=== PATIENT | male | born 1940 | race Caucasian/White ===

== ENCOUNTER 2017-01-06 22:38 | Inpatient (IN) | payer MEDICARE, OTHER ==
[~2017-01-06] VITALS: Ht 170.2 cm; Wt 116.2 kg
--- NOTE | ~2017-01-06 | DS ---
PATIENT'S NAME: ROSITA COFFMAN [facility] AGE: 76 Y [address] ROOM: [id number] [place] [id number] LOCATION: GPCU ADMIT DATE: 01/07/2017 Discharge Summary DISCHARGE DATE: 01/08/2017 FAMILY PHYSICIAN: PHYSICIAN, MARLEEN ATTENDING PHYSICIAN: Cosme Coughlin PRINCIPAL DIAGNOSES: 1. Severe sepsis secondary to bilateral lower extremity cellulitis. 2. Chronic venous insufficiency of lower extremities bilaterally. 3. Type 2 diabetes, new onset. BRIEF HOSPITAL COURSE: Please refer to the admission H and P for detailed history on initial presentation. This is a 76-year-old male with history of chronic venous insufficiency of the lower extremities, presents with progressively worsening erythema, redness, and pain of the lower extremities and on presentation was noted to have cellulitis and admitted for management of this setting of a sepsis picture. The patient was started on broad- spectrum antibiotics with Zyvox and Zosyn and cultures were drawn and at the time of discharge, cultures were negative. The patient, during my evaluation today, had shown significant improvement, redness, and erythema of the lower extremities, overall much improved. The patient had undergone Doppler studies of his lower extremities, which were negative for acute DVT as well. At this, we will discharge the patient to finish a total of at least 70s of antibiotic course with clindamycin. We will also send him on metformin 500 b.i.d. and we will have him follow up with primary care physician in 1 week. This is newly diagnosed diabetes. A1c today was 6.6. The patient will also follow up with a virtualization consultant as soon as possible to follow up on his issues with venous insufficiency and keep a close eye on the worsening calluses that he has that could potentially worsen, especially now that he is also a diabetic. PHYSICAL EXAMINATION: GENERAL: Appears awake, alert, and oriented x3, no acute distress. CHEST: Clear to auscultation bilaterally. HEART: S1, S2. Regular rate and rhythm. CHEST: Clear to auscultation bilaterally. EXTREMITIES: Lower extremities are without erythema, redness, or swelling. DISPOSITION: Home. FOLLOWUP: Follow up with Podiatry and PCP within 1 week. Less than 30 minutes were spent in discharge planning and facilitating. PATIENT'S NAME: ROSITA COFFMAN [facility] AGE: 76 Y [address] ROOM: [id number] [place] [address] LOCATION: GPCU ADMIT DATE: 01/07/2017 Discharge Summary DISCHARGE DATE: 01/08/2017 FAMILY PHYSICIAN: MARLEEN VILLATORO ATTENDING PHYSICIAN: Cosme Coughlin MD ALEXIS LEWIS/live /[id number] d: 01/09/17 0107 t: 01/14/17 1556, DISCHARGE SUMMARY
--- NOTE | ~2017-01-06 | HP ---
PATIENT'S NAME: ROSITA COFFMAN [facility] AGE: 76 Y [address] ROOM: [place] [address] LOCATION: [facility] ADMIT DATE: 01/07/2017 History & Physical DISCHARGE DATE: FAMILY PHYSICIAN: PHYSICIAN, UNKNOWN ATTENDING PHYSICIAN: KINZA ODONNELL DATE OF SERVICE: CHIEF COMPLAINT: Right big toe pain and feeling chills. HISTORY OF PRESENT ILLNESS: This is a 76-year-old male who says that around 7:30 p.m. last night the patient started feeling chills and the also found him to be a little bit confused. The describes the patient was slow in response, but there was no facial droop, no slurred speech, and no syncope. The patient says that his right big toe has an unhealing ulcer about the last 6 months and recently has been having some drainage that he described as a serosanguineous type. When he touched the right foot, he has pretty advanced peripheral neuropathy from diabetes, he always feel numb in his legs, but when he touches the right big toe ulcer, there is pain. The pain is not too bad, but because of the peripheral neuropathy. Because of this slight confusion and also this chills and the right big toe nonhealing ulcer, the patient came in here for evaluation. REVIEW OF SYSTEMS: As mentioned in the history of present illness. All other systems were reviewed and were negative except as mentioned in the history of present illness. PAST MEDICAL HISTORY: 1. Diabetes type 2. 2. Peripheral neuropathy from diabetes. 3. Hypothyroidism. 4. Fibromyalgia. ALLERGIES: NONE. HOME MEDICATIONS: Currently is being reconciled. SOCIAL HISTORY: The patient was a former cigarette smoker of very little amount and he quit in year 1961. He smoked only for a very short amount of time that he described PATIENT'S NAME: ROSITA COFFMAN [facility] AGE: 76 Y [address] ROOM: [address] [address] LOCATION: [facility] ADMIT DATE: 01/07/2017 History & Physical DISCHARGE DATE: FAMILY PHYSICIAN: PHYSICIAN, UNKNOWN ATTENDING PHYSICIAN: KINZA ODONNELL as 1 or 2 years. The patient was a former social alcohol drinker of very little amount. He denies any alcohol withdrawal or alcohol intoxication in the past. He quit drinking many years ago already. He denies any intravenous drug use. PAST SURGICAL HISTORY: 1. Bilateral shoulder surgery. 2. Knee surgery. FAMILY HISTORY: Both parents had diabetes type 2. PHYSICAL EXAMINATION: VITAL SIGNS: Temperature 98.5, blood pressure 134/87, respirations 16, saturation 97% on room air, and heart rate 90. GENERAL APPEARANCE: Alert and oriented x3. Currently, in no acute distress. HEENT: Pupils equally round and reactive to light. Extraocular muscles intact. Anicteric sclerae. Nasal turbinates are normal bilaterally. Moist oral mucosa. NECK: No JVD. CARDIOVASCULAR: Regular rate and rhythm. Normal S1 and S2. No murmur. No rubs. No gallops. RESPIRATORY: Clear to auscultation. No rales. No rhonchi. No wheezing. No crackles. ABDOMEN: Obese, soft, nontender, nondistended, bowel sounds present, and no mass. EXTREMITIES: He has pitting edema in bilateral lower extremities. He also has skin changes with stasis dermatitis in bilateral lower extremities. On the right big toe, there is an ulcer. Currently, it is dry. I do not see any secretion coming out and there is tenderness to palpation in that ulcer as well. The ulcer is about stage II based on my examination. Dorsalis pedis pulse and posterior tibialis pulse palpable bilaterally with fingers, on Doppler is audible on bilateral lower extremities. SKIN: As mentioned before, stasis dermatitis in bilateral lower extremities and also stage II ulcer on the right big toe. NEUROLOGICAL: Grossly nonfocal except for decreased sensation in bilateral lower extremities all the way from bilateral knees to the distal toes in both legs. LABORATORY DATA: ABG show pH of 7.45, pCO2 of 37, PO2 of 71, bicarbonate 25.7. Lactic acid 2.3. CPK 36. Troponin less than 0.04. ProBNP 119. White blood cell 15.7, hemoglobin 15.7, hematocrit 46, platelet 233. Glucose 124. BUN 28, creatinine 1.5. Sodium 140, potassium 4.0, chloride 108, CO2 of 23, calcium 9.0, total protein 7.2, albumin 3.7, AST 24, ALT 24, alkaline phosphatase 79, PATIENT'S NAME: ROSITA COFFMAN [facility] AGE: 76 Y [address] ROOM: [id number] [place] [id number] LOCATION: [facility] ADMIT DATE: 01/07/2017 History & Physical DISCHARGE DATE: FAMILY PHYSICIAN: PHYSICIAN, UNKNOWN ATTENDING PHYSICIAN: KINZA ODONNELL total bilirubin 0.5, anion gap 13, globulin 3.5. Urinalysis show negative UTI. GFR 44. CK-MB 0.7. Free T4 of 1.1, TSH 3.32. Procalcitonin 0.73. Absolute neutrophil count 14.1. IMAGING STUDIES: EKG on admission on January 06, 2017 at 10:48 p.m. shows sinus tachycardia with PVC. Also, has left axis deviation. Heart rate of 115. QTc 374 milliseconds. QRS 80 milliseconds. PA 185 milliseconds. No acute ischemic changes. Chest x-ray: Currently, has been taken. CT of the head without contrast. Based on the preliminary review on admission, it was read as no acute intracranial process. ASSESSMENT AND PLAN: 1. Regarding his severe sepsis secondary to right first toe cellulitis and concerning for underlying osteomyelitis: IV fluids for hydration and also I have covered him with IV linezolid and IV Zosyn. The patient is in severe sepsis having tachycardia and having low-grade temperature and leukocytosis and in pain. Given that it is middle of the night due to the severe sepsis, I am going to start antibiotics without waiting for the MRI. Ideally, we should wait for the bone biopsy if there is osteomyelitis, but given that patient is in severe sepsis I am not going to delay the treatment. In addition, osteomyelitis has not been confirmed. Therefore, we will get an ESR CRP now and also check an MRI of the right foot in the morning to confirm bone involvement. We will get 2 sets of blood culture. Further plan will depend on clinical course. Pain control with IV morphine p.r.n. 2. Regarding his acute kidney injury: We will be giving IV fluids. He got 2 L of normal saline in the ED. I will continue another third liter. Put a Nunn catheter for strict in's and out's. We will check the urine electrolytes. UA is clean. 3. Regarding his diabetes type 2: We will check A1c. Cover him with subcu regular insulin q.4 hours low dose. The patient will be n.p.o. for now given that if there is bone involvement confirming osteomyelitis, the patient will need orthopedic surgeon consult for bone debridement and bone biopsy at that time. 4. Regarding his intermittent claudication: The patient has multiple risk factors for peripheral vascular disease including obesity and being diabetic and has a very advanced peripheral neuropathy and also he has symptoms consistent with intermittent claudication for the last few years. Pulse could be felt with the finger but weak, but they are very audible on Doppler. I will get an arterial duplex ultrasound in the morning of both legs to look for the circulation problem. If this is PATIENT'S NAME: ROSITA COFFMAN [facility] AGE: 76 Y [address] ROOM: [address] [address] LOC[facility]: [facility] ADMIT DATE: 01/07/2017 History & Physical DISCHARGE DATE: FAMILY PHYSICIAN: PHYSICIAN, UNKNOWN ATTENDING PHYSICIAN: KINZA ODONNELL, we will consult Vascular Surgery. I will also get a venous duplex ultrasound of bilateral lower extremity to rule out deep vein thrombosis as well. 5. Regarding his hypothyroidism: We will check a TSH. Continue home medication. Currently, the medication list has been reconciled. Modify the dose of levothyroxine if necessary based on the TSH. 6. Regarding his peripheral neuropathy from diabetes: Continue gabapentin which is home medication. 7. He is a full code. 8. Deep vein thrombosis prophylaxis: Avoid compression devices and avoid any pharmacologic agent for now given that if the patient has a DVT, we would want to put compression devices. If the patient had osteomyelitis, the patient will require debridement and a bone biopsy, and for that, we need to first do the MRI of the right foot tomorrow. Time spent in care on the day of admission 60 minutes where 15 minutes was spent on chart review and remainder of the time was spent on interview and also on physical examination and also on counseling. Counseling includes going over the plan of care with the patient and the patient's at the bedside. They had many questions. I answered every single one of them to their satisfaction. I went over the plan of care in detail with the patient and the patient's . Further plan will depend on clinical course. KINZA ODONNELL MD CC/live /[id number] D: 04 HISTORY & PHYSICAL
--- NOTE | ~2017-01-06 | ER ---
PATIENT'S NAME: ROSITA COFFMAN [facility] AGE: 76 Y [address] ROOM: [place] [address] LOCATION: ED ADMIT DATE: 01/06/2017 ER/Outpatient Report DISCHARGE DATE: FAMILY PHYSICIAN: Physician, Unknown ATTENDING PHYSICIAN: Colby Shaw Time of Arrival: 2236 hours. Time of Evaluation: 2236 hours. CHIEF COMPLAINT: Shivers and confusion. HISTORY OF PRESENT ILLNESS: states they were at [place] to the [employer] today and about 2 hours prior to arrival, he started having shivering, shaking, and then became quite confused. She feels that he has had chills and fever. He was a little short of breath but denied having pain anywhere. They are here visiting from [place]. He is able to state his name and where he lives, but he is not really quite sure what is going on this evening. ALLERGIES AND MEDICATIONS: His current allergies and medications are on his chart and reviewed by me. PAST MEDICAL HISTORY: [id number] diabetes, and states he is not on any oral medicines at this time. He is controlled with diet. He has lost 35 pounds over the last month. Also has fibromyalgia, neuropathy, hypothyroidism. PAST SURGICAL HISTORY: Shoulder surgery. SOCIAL HISTORY: They live in [place]. They are here visiting friends. He is accompanied by his . 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 Denies the use of tobacco, drugs, or alcohol. REVIEW OF SYSTEMS: Negative other than those mentioned in the HPI. PHYSICAL EXAMINATION: VITAL SIGNS: He weighed 112.3 kg, blood pressure is 166/86, pulse of 113, respirations 24, temperature of 99.7, and O2 saturation was 91% on room air. GENERAL: He is awake, alert, aware of his surroundings. He is able to state his name, and where he lives. Currently tell us what was going on today. He did remember being at the [employer] event. He denies having any pain or PATIENT'S NAME: ROSITA COFFMAN [facility] AGE: 76 Y [address] ROOM: [place] [address] LOCATION: [facility] ADMIT DATE: 01/06/2017 ER/Outpatient Report DISCHARGE DATE: FAMILY PHYSICIAN: Physician, Unknown ATTENDING PHYSICIAN: Colby Shaw. HEENT: Pupils are equal and reactive to light. Oropharynx is clear posteriorly. NECK: Supple. No lymphadenopathy. LUNGS: Sounds are clear throughout. HEART: Regular rate and rhythm. ABDOMEN: Soft, nondistended. Bowel sounds are present. EXTREMITIES: He does have some 2 to 3+ pedal edema. He has vascular staining bilaterally to his lower extremities. No redness or increased warmth is noted. EMERGENCY DEPARTMENT COURSE: Saline lock was initiated. Fluids of normal saline were started at a wide- open rate. EKG was completed. It shows a sinus tachy, did have a PVC. CBC shows a white count of 15.7, ANC is 14.1, platelets are 233. Chem Panel: Sodium is 140 with potassium of 4 and chloride of 108. His glucose is 124. His Accu-Chek was 122. BUN is 28 with creatinine 1.5. Cardiac enzymes are within normal limits. Lactate was 2.3. Procalcitonin was 0.73. His venous gases; pH is 7.45, pCO2 is 37, HCO3 was 25.7. His BHB was 1.2 with a proBNP of 119. Did CT of his head and radiologist reports no acute findings. Dr. Shaw was consulted regarding the patient. Chest x-ray was completed. UA was obtained, awaiting those results. Dr. Coughlin was contacted. The sepsis protocol was initiated. Zosyn 4.5 g IV was started. IMPRESSION: Sepsis. PLAN: The patient will be admitted per hospitalist care. He and his are aware of plan of care. YARI YOO APRN FOR MD PUMA ACOSTA/live /[id number] d: 01/07/17 0028 t: 01/10/17 1529, OUTPATIENT REPORT
--- NOTE | ~2017-01-06 | ENPV ---
Vascular Lower Extremities Arterial Duplex Procedure Demographics Patient Name ROSITA COFFMAN Date of Study 01/07/2017 Patient Number [id number] Gender Male Date of 1940 Age 76 Visit Number [id number] Height Accession Number [id number] Weight Room Number G6339 BSA BMI Referring Madyson Atkinson MD Interpreting Shady Lindsay MD Physician Physician Physician Ordering Physician Madyson Atkinson MD Joist Setter Machine Shop Repair Technician Matheus Navas, T Conclusions Summary Bilateral lower extremities arteries are within normal limits with no significant stenosis. Procedure Type of Study: Extremities Arteries:Lower Extremities Arterial Duplex, Arterial Duplex Lower Extremity Bilateral. Indications for Study:Chronic Ulcer and Claudication. Appropriate Use Criteria:9 Patient Status:Routine. Study Location:Inpatient Portable. Technical Quality:Adequate visualization. Velocities are measured in cm/s ; Diameters are measured in cm LE Duplex Measurements + ++-----+ +----+---+ + ! !!Right! !Left! ! ! + ++-----+ +----+---+ + !Location !!PSV !Wave Desc. ! !PSV!Wave Desc. ! + ++-----+ +----+---+ + !Femoral !!78 !Triphasic ! !75 !Triphasic ! + ++-----+ +----+---+ + !PFA !!45 !Biphasic ! !60 !Triphasic ! + ++-----+ +----+---+ + !Prox SFA !!101 !Triphasic ! !87 !Triphasic ! + ++-----+ +----+---+ + !Mid SFA !!119 !Triphasic ! !104!Triphasic ! + ++-----+ +----+---+ + !Dist SFA !!105 !Triphasic ! !88 !Triphasic ! + ++-----+ +----+---+ + !Prox Popliteal !!61 !Triphasic ! !73 !Triphasic ! + ++-----+ +----+---+ + !Mid Popliteal !!82 !Triphasic ! !74 !Triphasic ! + ++-----+ +----+---+ + !Dist Popliteal !!81 !Triphasic ! !44 !Triphasic ! + ++-----+ +----+---+ + !Dist GRUBBER !!91 !Triphasic ! !102!Triphasic ! + ++-----+ +----+---+ + !DP !!68 !Low Resistive ! !29 !Triphasic ! + ++-----+ +----+---+ + Signature dtt: BIRDIE WISEMAN dtd: 01/07/17 1718 Physician Self Edit
--- NOTE | ~2017-01-06 | ENPV ---
Vascular Lower Extremities DVT Study Procedure Demographics Patient Name ROSITA COFFMAN Date of Study 01/07/2017 Patient Number [id number] Gender Male Date of 1940 Age 76 Visit Number [id number] Height Accession Number [id number] Weight Room Number G6339 BSA BMI Referring Madyson Atkinson MD Interpreting Shady Lindsay MD Physician Physician Physician Ordering Physician Madyson Atkinson MD Construction Management Instructor Taker Off Drying Kiln Matheus Navas, T Conclusions Summary No evidence of deep vein thrombosis in bilateral lower extremities. Procedure Type of Study: Veins:Lower Extremities DVT Study, Venous Duplex Lower Extremity Bilateral. Indications for Study:Bilateral lower extremity edema and Pain in Limb. Additional Indications:Bilateral lower extremity pain Appropriate Use Criteria:8 Patient Status:Routine. Study Location:Inpatient Portable. Technical Quality:Adequate visualization. Velocities are measured in cm/s ; Diameters are measured in cm Right Lower Extremities DVT Study Measurements Right 2D and Doppler Measurements + + + + +------+------+ + !Location !Visualized!Compressibility!Thrombosis!Signal!Reflux!Reflux ! ! ! ! ! ! ! !(sec) ! + + + + +------+------+ + !GSV Thigh !Yes !Yes !None !Phasic! ! ! + + + + +------+------+ + !Common !Yes !Yes !None !Phasic! ! ! !Femoral ! ! ! ! ! ! ! + + + + +------+------+ + !Prox !Yes !Yes !None !Phasic! ! ! !Femoral ! ! ! ! ! ! ! + + + + +------+------+ + !Mid Femoral!Yes !Yes !None !Phasic! ! ! + + + + +------+------+ + !Dist !Yes !Yes !None !Phasic! ! ! !Femoral ! ! ! ! ! ! ! + + + + +------+------+ + !Popliteal !Yes !Yes !None !Phasic! ! ! + + + + +------+------+ + !Gastroc !Yes !Yes !None ! ! ! ! + + + + +------+------+ + !PTV !Yes !Yes !None ! ! ! ! + + + + +------+------+ + !Peroneal !Yes !Yes !None ! ! ! ! + + + + +------+------+ + Left Lower Extremities DVT Study Measurements Left 2D and Doppler Measurements + + + + +------+------+ + !Location !Visualized!Compressibility!Thrombosis!Signal!Reflux!Reflux ! ! ! ! ! ! ! !(sec) ! + + + + +------+------+ + !GSV Thigh !Yes !Yes !None !Phasic! ! ! + + + + +------+------+ + !Common !Yes !Yes !None !Phasic! ! ! !Femoral ! ! ! ! ! ! ! + + + + +------+------+ + !Prox !Yes !Yes !None !Phasic! ! ! !Femoral ! ! ! ! ! ! ! + + + + +------+------+ + !Mid Femoral!Yes !Yes !None !Phasic! ! ! + + + + +------+------+ + !Dist !Yes !Yes !None !Phasic! ! ! !Femoral ! ! ! ! ! ! ! + + + + +------+------+ + !Popliteal !Yes !Yes !None !Phasic! ! ! + + + + +------+------+ + !Gastroc !Yes !Yes !None ! ! ! ! + + + + +------+------+ + !PTV !Yes !Yes !None ! ! ! ! + + + + +------+------+ + !Peroneal !Yes !Yes !None ! ! ! ! + + + + +------+------+ + Signature dtt: BIRDIE WISEMAN dtdg: 01/07/17 1705 Physician Self Brandy
[2017-01-06 22:59] LABS: HEMOGLOBIN 15.7 g/dL (11.0-16.0); MCH 30.1 pg (27.0-34.0); MCHC 34.1 gm/dL (32.0-36.5); MCV 88.3 fl (83.0-98.0); MPV 9.9 fl (9.4-12.4); PLATELET COUNT 233 K/uL (150-450); RBC 5.21 M/uL (3.50-5.50); RDW-CV 13.4 % (11.9-14.6); WBC 15.7 K/uL (4.0-11.0)
[2017-01-06 23:14] LABS: BICARBONATE 25.7 mmol/L (18.0-23.0); PCO2 37 mmHg (35-45); PO2 71 mmHg (80-90)
[2017-01-06 23:20] LABS: ALBUMIN 3.7 gm/dL (3.5-5.0); ALK PHOS 79 IU/L (33-138); ALT 24 IU/L (12-78); AST 24 IU/L (10-40); BLOOD UREA NITROGEN 28 mg/dL (6-24); CHLORIDE 108 mMol/L (96-110); CO2 23 mMol/L (22-32); CPK 36 IU/L (35-332); CREATININE 1.5 mg/dL (0.6-1.3); SODIUM 140 mMol/L (135-145); TOTAL BILIRUBIN 0.5 mg/dL (0.0-1.5); TOTAL PROTEIN 7.2 g/dL (6.0-8.4)
[2017-01-06 23:47] LABS: LYMPHOCYTE # 0.9 K/uL (0.8-4.0); LYMPHOCYTE % 6 %; MONOCYTE # 0.8 K/uL (0.0-1.0); SEGMENTED NEUTROPHIL # 9.9 K/uL (1.4-9.0); SEGMENTED NEUTROPHIL % 63 %
[2017-01-06 23:48] LABS: ABSOLUTE NEUTROPHIL CT (ANC) 14.1 K/uL (1.4-9.0); BANDED NEUTROPHIL # 4.2 K/uL (0.0-0.1); BANDED NEUTROPHILS % 27 %
[2017-01-06 23:57] LABS: BILIRUBIN URINE NEGATIVE (NEGATIVE); BLOOD URINE 25 /UL (NEGATIVE); COLOR URINE YELLOW (YELLOW); GLUCOSE URINE NEGATIVE (NEGATIVE); KETONE URINE NEGATIVE (NEGATIVE); LEUKOCYTES URINE NEGATIVE /UL (NEGATIVE); NITRITE URINE NEGATIVE (NEGATIVE); PROTEIN URINE NEGATIVE (NEGATIVE); SPEC GRAVITY URINE 1.015 (1.003-1.035); TURBIDITY URINE CLEAR (CLEAR); UROBILINOGEN URINE NORMAL (NORMAL)
[2017-01-07 00:07] LABS: WBC URINE 0-2 #/HPF (NEGATIVE)
[2017-01-07 00:11] LABS: BACTERIA URINE FEW (NEGATIVE)
[2017-01-07] MEDS ORDERED: NEURONTIN300 MG PO (01:49)
[2017-01-07] MEDS ORDERED: THERA-VITE W/ B1 TAB PO (01:51)
[2017-01-07] MEDS ORDERED: LEVOTHROID (SY50 MCG (01:51)
--- NOTE | 2017-01-07 04:23 | NUR ---
Patient is a 76 year old male who was visiting family and friends in [place], when noticed that he was more confused and shaky with the chills. In the ED he was started on Sepsis protocol. IV fluids and antibiotics initated and continued on to PCU. Patient admitted for cellulitis with possible osteomylitis. MRI and duplex scans planned for Sunday. Patient able to ambulate from cart to bed 1 assist but is weak. VSS on RA. aware that patient is on the floor, orders written in ED. PIV to R)hand. No known Allergies.
[2017-01-07 07:18] LABS: HEMATOCRIT 40.5 % (37.0-53.0); HEMOGLOBIN 13.5 g/dL (11.0-16.0); MCHC 33.3 gm/dL (32.0-36.5); MPV 10.1 fl (9.4-12.4); RBC 4.5 M/uL (3.50-5.50); RDW-CV 13.6 % (11.9-14.6)
[2017-01-07 07:21] LABS: WBC 23.1 K/uL (4.0-11.0)
[2017-01-07 07:37] LABS: ANION GAP 11.3 (10.0-19.0); CALCIUM 8.1 mg/dL (8.5-10.5); CREATININE 1.2 mg/dL (0.6-1.3); POTASSIUM 4.3 mMol/L (3.7-5.1)
--- NOTE | 2017-01-07 17:36 | NUR ---
Significant Event: A/O x3, cooperative with cares. VSS, SBPs 100-110s, HRs 60s, on room air. C/O headache this AM; refused intervention; no c/o pain since. MRI today; negative for osteomylitis, shows cellulitis. Duplex scans of extremities done, no report as of this time. Nunn with 400 ml of yellow urine out; dc'd at 1535, no void as of this time. Up with SBA to bathroom. Follow up: podiatry consult for trimming of callous on foot; will need to be on Sunday.
--- NOTE | 2017-01-08 04:23 | NUR ---
Significant Event:A/Ox3. Afebrile. HR 60-70s. SBP 120-140s. Sats >92% on RA. Up ad oscar in room, patient states that short distances are fine for him. No c/o pain, sob, nausea or weakness. Continue with IV zyvox and zosyn. Podiatry to consult today or sunday. Follow up:Continue to monitor labs.
[2017-01-08 14:22] LABS: BASOPHIL % 0.4 %; EOSINOPHIL # 0.3 K/uL (0.0-0.5); HEMATOCRIT 41.3 % (37.0-53.0); HEMOGLOBIN 13.9 g/dL (11.0-16.0); IMMATURE GRANULOCYTE % 0.3 %; LYMPHOCYTE # 1.3 K/uL (0.8-4.0); LYMPHOCYTE % 13.6 %; MCH 30.2 pg (27.0-34.0); MCHC 33.7 gm/dL (32.0-36.5); MCV 89.8 fl (83.0-98.0); MONOCYTE % 11.2 %; MPV 10.2 fl (9.4-12.4); NEUTROPHIL # (ANC) 6.6 K/uL (1.4-9.0); NEUTROPHIL % 71.5 %; NRBC % 0 /100WBC (0-0.00); PLATELET COUNT 220 K/uL (150-450); RDW-CV 13.9 % (11.9-14.6); WBC 9.2 K/uL (4.0-11.0)
[2017-01-08] MEDS ORDERED: FLORASTOR250 MG PO (16:15)
[2017-01-08] MEDS ORDERED: CLEOCIN150 MG PO (16:17)
[2017-01-08] MEDS ORDERED: LASIX20 MG PO (16:19)
[2017-01-08] MEDS ORDERED: GLUCOPHAGE XR500 M1 PO (16:19)
--- NOTE | 2017-01-08 17:03 | NUR ---
Significant Event: A/O x3, cooperative with cares. VSS, SBPs 130-140s, HRs 60s, on room air. No c/o pain. Up in room ad oscar. Dismissal instructions given to both patient et ; verbalized understanding. Dismissed to front lobby per w/c accompanied by nursing unit manager Follow up:
== END 2017-01-08 16:55 | disposition disaster alternative care site (69) | DRG 872 ==
LOC: GMED 22:38 → GPCU 01-07 01:00
PROVIDERS: Emergency Medicine; Internal Medicine; ADMIT Internal Medicine
DX: A41.9 Sepsis, unspecified organism (principal); N17.9 Acute kidney failure, unspecified; E11.42 Type 2 diabetes mellitus with diabetic polyneuropathy; F05 Delirium due to known physiological condition; L03.115 Cellulitis of right lower limb; L03.031 Cellulitis of right toe; R65.20 Severe sepsis without septic shock; I87.2 Venous insufficiency (chronic) (peripheral); E03.9 Hypothyroidism, unspecified; M79.7 Fibromyalgia; E66.9 Obesity, unspecified; Z68.39 Body mass index [BMI] 39.0-39.9, adult; L84 Corns and callosities; Z79.84 Long term (current) use of oral hypoglycemic drugs; L97.519 Non-pressure chronic ulcer of other part of right foot with unspecified severity; Z87.891 Personal history of nicotine dependence
CPT/HCPCS: A9577; J0131; J1650; J2020; J2543; J7030